=== PATIENT | female | born 1990 | race Caucasian/White ===

== ENCOUNTER 2023-01-07 12:07 | Emergency (ER) | payer BC, MEDICAID ==
[~2023-01-07] VITALS: Ht 165.1 cm; Wt 95.6 kg
[~2023-01-07 12:07] MED LIST: GUAI10SY2 PO; IBUP-1984 PO; [UNRECOGNIZED DRUG - CODE] PO
[2023-01-07 12:16] VITALS: BP 138/97
[2023-01-07 12:39] LABS: BASOPHILS % (AUTO) 0.4 % (0-1); EOSINOPHILS # (AUTO) 0.2 X10'3 (0-0.9); HEMATOCRIT 44.6 % (35.0-45.0); HEMOGLOBIN 15.1 g/dl (12.0-16.0); LYMPHOCYTES # (AUTO) 2.4 X10'3 (1.1-4.8); LYMPHOCYTES % (AUTO) 24.3 % (21-51); MEAN CORPUSCULAR HEMOGLOBIN 29.1 PG (27.0-31.0); MEAN CORPUSCULAR HGB CONC 33.9 g/dL (33.0-36.5); MEAN CORPUSCULAR VOLUME 85.9 FL (78-98); MEAN PLATELET VOLUME 6.9 FL (7.4-10.4); MONOCYTES # (AUTO) 0.9 X10'3 (0-0.9); NEUTROPHILS # (AUTO) 6.5 X10'3 (1.8-7.7); NEUTROPHILS % (AUTO) 64.3 % (42-75); PLATELET COUNT 340 X10'3 (140-440); RED BLOOD COUNT 5.19 X10'6 (4.20-5.60); RED CELL DISTRIBUTION WIDTH 12.9 % (11.5-14.5); WHITE BLOOD COUNT 10.1 X10'3 (4.5-11.0)
[2023-01-07 12:43] LABS: URINE HCG NEGATIVE (NEG)
[2023-01-07 12:50] LABS: CLARITY,URINE CLOUDY (Clear); COLOR,URINE AMBER (Yellow); GLUCOSE, URINE 100 mg/dl (Neg); KETONES,URINE TRACE mg/dl (Neg); LEUKOCYTE ESTERASE ,URINE SMALL (Neg); NITRITES, URINE NEGATIVE (Neg); OCCULT BLOOD,URINE NEGATIVE (Neg); PH,URINE 6.5 (4.8-8.0); PROTEIN,URINE 30 mg/dl (Neg)
[2023-01-07 12:51] LABS: UA COLLECTION TYPE CLN CATCH MIDSTREAM
[2023-01-07 12:57] LABS: ALANINE AMINOTRANSFERASE 22 U/L (12-78); ALBUMIN 4.1 G/DL (3.4-5.0); ALKALINE PHOSPHATASE 106 IU/L (46-116); ANION GAP 6 (8-16); ASPARTATE AMINO TRANSFERASE 14 U/L (10-37); BILIRUBIN,TOTAL 1.2 MG/DL (0.1-1.0); BLOOD UREA NITROGEN 9 MG/DL (7-18); BUN/CREATININE RATIO 9.6 (10.0-20.0); CALCIUM 9.3 MG/DL (8.5-10.1); CHLORIDE 100 MMOL/L (99-107); CREATININE 0.94 MG/DL (0.40-0.90); GLUCOSE 97 MG/DL (70-104); LIPASE 72 U/L (73-393); POTASSIUM 3.4 MMOL/L (3.5-5.1); SODIUM 138 MMOL/L (135-145); TOTAL CARBON DIOXIDE 32.1 MMOL/L (24-32); TOTAL PROTEIN 8.2 G/DL (6.4-8.2); eGFR 69 ML/MIN
[2023-01-07 12:59] LABS: BACTERIA,URINE 2+ /HPF (Neg); MUCUS STRANDS MODERATE /LPF (Neg); RBC,URINE NONE SEEN /HPF (0-2); SQUAMOUS EPITHELIAL CELL,UR MANY /LPF (FEW)
[2023-01-07 13:00] LABS: WBC,URINE 30-50 /HPF (0-4)
[2023-01-07] MEDS ORDERED: ondansetron/PF 4mg/2ml inj IV ONE (13:20)
[2023-01-07] MEDS ORDERED: normal saline 1000ml 1,000 ML IV ONE ×2 (13:20)
[2023-01-07] MEDS ORDERED: CefTRIAXone/D5W-Rocephin 1gm 50 ML IV ONE (13:20)
--- NOTE | 2023-01-07 13:21 | NUR ---
Per patient she just had her period 2 week ago.
[2023-01-07] MEDS ORDERED: famotidine/PF 10 mg/ml inj IV ONE (13:30)
[2023-01-07] MEDS ORDERED: AMOX-117 PO (13:51)
[2023-01-07] MEDS ORDERED: ONDA4TAB12 PO (13:51)
[2023-01-07] MEDS ORDERED: PANT-47 PO (14:18)
[2023-01-08] MEDS ORDERED: ONDA8TAB13 PO (14:38)
[2023-01-08] MEDS ORDERED: METO-292 PO (14:38)
== END 2023-01-07 15:32 | disposition home or self-care (01) ==
LOC: ER 12:08
DX: K52.9 Noninfective gastroenteritis and colitis, unspecified (principal); N10 Acute pyelonephritis; K21.9 Gastro-esophageal reflux disease without esophagitis; Z79.899 Other long term (current) drug therapy
CPT/HCPCS: 36415; 80053; 81001; 81025; 83690; 85025; 96365; 96375; 99284; J0696; J2405; J3490; J7030

== ENCOUNTER 2023-01-08 11:58 | Emergency (ER) | payer MEDICAID ==
[~2023-01-08] VITALS: Ht 165.1 cm; Wt 90.9 kg
[~2023-01-08 11:58] MED LIST changes: +AMOX-117 PO; +ONDA4TAB12 PO; +PANT-47 PO
[2023-01-08] MEDS ORDERED: normal saline 1000ML IV soln IVB ONE (12:45)
[2023-01-08] MEDS ORDERED: metoclopramide 5 mg/ml inj IV ONE (12:45)
[2023-01-08] MEDS ORDERED: ondansetron/PF 4mg/2ml inj IV ONE (12:54)
[2023-01-08] MEDS ORDERED: iohexol 300mg/ml 100ml inj. ONE (13:21)
[2023-01-08 13:30] LABS: BASOPHILS % (AUTO) 0.3 % (0-1); EOSINOPHILS # (AUTO) 0.2 X10'3 (0-0.9); EOSINOPHILS % (AUTO) 2.8 % (0-6); HEMATOCRIT 39.9 % (35.0-45.0); HEMOGLOBIN 13.6 g/dl (12.0-16.0); LYMPHOCYTES # (AUTO) 2.1 X10'3 (1.1-4.8); LYMPHOCYTES % (AUTO) 25.4 % (21-51); MEAN CORPUSCULAR HEMOGLOBIN 29.5 PG (27.0-31.0); MEAN CORPUSCULAR HGB CONC 34.1 g/dL (33.0-36.5); MEAN CORPUSCULAR VOLUME 86.5 FL (78-98); MEAN PLATELET VOLUME 7.2 FL (7.4-10.4); MONOCYTES # (AUTO) 0.9 X10'3 (0-0.9); MONOCYTES % (AUTO) 11.5 % (2-12); NEUTROPHILS # (AUTO) 4.9 X10'3 (1.8-7.7); PLATELET COUNT 259 X10'3 (140-440); RED BLOOD COUNT 4.61 X10'6 (4.20-5.60); RED CELL DISTRIBUTION WIDTH 12.6 % (11.5-14.5); WHITE BLOOD COUNT 8.2 X10'3 (4.5-11.0)
[2023-01-08 13:43] LABS: ALANINE AMINOTRANSFERASE 15 U/L (12-78); ALBUMIN 3.6 G/DL (3.4-5.0); ALKALINE PHOSPHATASE 88 IU/L (46-116); ANION GAP 7 (8-16); ASPARTATE AMINO TRANSFERASE 14 U/L (10-37); BILIRUBIN,TOTAL 0.7 MG/DL (0.1-1.0); BLOOD UREA NITROGEN 7 MG/DL (7-18); BUN/CREATININE RATIO 9.2 (10.0-20.0); CALCIUM 8.7 MG/DL (8.5-10.1); CHLORIDE 104 MMOL/L (99-107); CREATININE 0.76 MG/DL (0.40-0.90); GLUCOSE 82 MG/DL (70-104); LIPASE 68 U/L (73-393); POTASSIUM 3.6 MMOL/L (3.5-5.1); SODIUM 140 MMOL/L (135-145); TOTAL CARBON DIOXIDE 28.6 MMOL/L (24-32); TOTAL PROTEIN 7.2 G/DL (6.4-8.2); eGFR 88 ML/MIN
[2023-01-08 13:44] LABS: HCG SERUM QL NEGATIVE
[2023-01-08] MEDS ORDERED: ONDA8TAB13 PO (14:38)
[2023-01-08] MEDS ORDERED: METO-292 PO (14:38)
[2023-01-08 14:50] VITALS: BP 136/64
== END 2023-01-08 14:52 | disposition home or self-care (01) ==
LOC: ER 11:58
DX: R11.2 Nausea with vomiting, unspecified (principal); R19.7 Diarrhea, unspecified; M54.59 Other low back pain; K21.9 Gastro-esophageal reflux disease without esophagitis; Z79.899 Other long term (current) drug therapy
CPT/HCPCS: 36415; 74177; 80053; 83690; 84703; 85025; 96361; 96374; 96375; 99285; J2405; J2765; J3490; J7030; Q9967

== ENCOUNTER 2023-04-01 16:42 | Emergency (ER) | payer MEDICAID ==
[~2023-04-01] VITALS: Ht 167.6 cm; Wt 93.2 kg
[~2023-04-01 16:42] MED LIST changes: -AMOX-117 PO; +METO-292 PO; +ONDA8TAB13 PO
[2023-04-01 17:11] VITALS: BP 126/84
== END 2023-04-01 19:24 | disposition left against medical advice (07) ==
LOC: ER 16:43
DX: H57.11 Ocular pain, right eye (principal); Z53.21 Procedure and treatment not carried out due to patient leaving prior to being seen by health care provider
CPT/HCPCS: 99281

== ENCOUNTER 2024-07-25 15:23 | Outpatient (CLI) | payer MEDICAID ==
[~2024-07-25 15:23] MED LIST changes: +ONDA-243 PO; +ONDA-245 PO; -ONDA4TAB12 PO; -ONDA8TAB13 PO
== END 2024-07-25 23:59 | disposition home or self-care (01) ==
LOC: RAD 15:23
PROVIDERS: ATTEND Family Medicine
DX: M41.24 Other idiopathic scoliosis, thoracic region (principal)
CPT/HCPCS: 72082

== ENCOUNTER 2024-11-09 08:47 | Emergency (ER) | payer MEDICAID ==
[~2024-11-09] VITALS: Ht 165.1 cm; Wt 74.3 kg
[2024-11-09] MEDS: CefTRIAXone 2gm/D5W 50ml BAG 50 ML IV ONE (10:12)
[2024-11-09 10:18] LABS: BASOPHILS % (AUTO) 0.3 % (0-1); EOSINOPHILS # (AUTO) 0.1 X10'3 (0-0.9); EOSINOPHILS % (AUTO) 1.3 % (0-6); HEMATOCRIT 38.8 % (35.0-45.0); HEMOGLOBIN 13.2 g/dl (12.0-16.0); LYMPHOCYTES # (AUTO) 1.8 X10'3 (1.1-4.8); MEAN CORPUSCULAR HEMOGLOBIN 29.3 PG (27.0-31.0); MEAN CORPUSCULAR VOLUME 86.2 FL (78-98); MEAN PLATELET VOLUME 6.2 FL (7.4-10.4); MONOCYTES % (AUTO) 8.7 % (2-12); NEUTROPHILS # (AUTO) 8.1 X10'3 (1.8-7.7); NEUTROPHILS % (AUTO) 73.7 % (42-75); PLATELET COUNT 413 X10'3 (140-440); RED BLOOD COUNT 4.51 X10'6 (4.20-5.60); RED CELL DISTRIBUTION WIDTH 12.7 % (11.5-14.5)
[2024-11-09 10:34] LABS: ALANINE AMINOTRANSFERASE 85 U/L (12-78); ALBUMIN 3.1 G/DL (3.4-5.0); ALBUMIN/GLOBULIN RATIO 0.6 (1.1-1.5); ALKALINE PHOSPHATASE 168 IU/L (46-116); ANION GAP 6 (8-16); ASPARTATE AMINO TRANSFERASE 32 U/L (10-37); BILIRUBIN,TOTAL 0.4 MG/DL (0.1-1.0); BLOOD UREA NITROGEN 5 MG/DL (7-18); BUN/CREATININE RATIO 8.3 (10.0-20.0); CALCIUM 8.6 MG/DL (8.5-10.1); CHLORIDE 100 MMOL/L (99-107); GLUCOSE 85 MG/DL (70-104); POTASSIUM 3.6 MMOL/L (3.5-5.1); SODIUM 138 MMOL/L (135-145); TOTAL CARBON DIOXIDE 32.3 MMOL/L (24-32); eCRCL 119 ML/MIN; eGFR > 90 ML/MIN
[2024-11-09 11:03] LABS: HIV ANTIBODY 1&2 RAPID NON-REACTIVE (Neg)
[2024-11-09] MEDS ORDERED: AZIT250T83 PO (11:30)
[2024-11-09] MEDS ORDERED: ALBU8HFA INH (11:30)
[2024-11-09] MEDS ORDERED: PROM118S5 PO (11:30)
[2024-11-09 11:45] LABS: BILIRUBIN,URINE NEGATIVE (Neg); CLARITY,URINE CLEAR (Clear); COLOR,URINE YELLOW (Yellow); GLUCOSE, URINE NEGATIVE (Neg); KETONES,URINE NEGATIVE (Neg); LEUKOCYTE ESTERASE ,URINE NEGATIVE (Neg); NITRITES, URINE NEGATIVE (Neg); OCCULT BLOOD,URINE NEGATIVE (Neg); PH,URINE 7.5 (4.8-8.0); PROTEIN,URINE NEGATIVE (Neg); URINE HCG NEGATIVE (NEG)
[2024-11-09 11:48] LABS: UA COLLECTION TYPE CLN CATCH MIDSTREAM
[2024-11-09 11:57] VITALS: BP 111/75; PULSE 100; RESP 19; TEMP 97.6; O2SAT 98
== END 2024-11-09 11:58 | disposition home or self-care (01) ==
LOC: ER 08:47
DX: J18.9 Pneumonia, unspecified organism (principal); K21.9 Gastro-esophageal reflux disease without esophagitis; Z79.1 Long term (current) use of non-steroidal anti-inflammatories (NSAID); Z79.899 Other long term (current) drug therapy; Z20.822 Contact with and (suspected) exposure to COVID-19
CPT/HCPCS: 36415; 71045; 80053; 81003; 81025; 83605; 83735; 84145; 85025; 86703; 87040; 87502; 87503; 87811; 93005; 96365; 99285; J0696; J7030

== ENCOUNTER 2024-11-10 11:04 | Emergency (ER) | payer MEDICAID ==
[~2024-11-10] VITALS: Ht 165.1 cm; Wt 74.3 kg
[~2024-11-10 11:04] MED LIST changes: +ALBU8HFA INH; +AZIT250T83 PO; +PROM118S5 PO
[2024-11-10 11:15] VITALS: BP 113/78; TEMP 98.1
[2024-11-10 12:50] VITALS: PULSE 98; RESP 14; O2SAT 97
[2024-11-10] MEDS: ipratropium/albuterol 3ml nebule NEB ONE (12:50)
[2024-11-10 12:57] VITALS: PULSE 100; RESP 14; O2SAT 98
[2024-11-10] MEDS: dexamethasone sod phosphate 10mg/ml inj IM ONE (13:11)
== END 2024-11-10 13:14 | disposition left against medical advice (07) ==
LOC: ER 11:05
DX: J18.9 Pneumonia, unspecified organism (principal); K21.9 Gastro-esophageal reflux disease without esophagitis; Z79.2 Long term (current) use of antibiotics
CPT/HCPCS: 71045; 94640; 94760; 99283

== ENCOUNTER 2025-01-31 22:17 | Emergency (ER) | payer MEDICAID ==
[~2025-01-31] VITALS: Ht 167.6 cm; Wt 77.5 kg
[~2025-01-31 22:17] MED LIST changes: -ALBU8HFA INH; -AZIT250T83 PO; -PROM118S5 PO
[2025-01-31 22:19] VITALS: BP 131/92; PULSE 95; RESP 18; TEMP 98.3; O2SAT 100
[2025-02-01] MEDS ORDERED: GABA-530 PO (10:13)
== END 2025-02-01 00:19 | disposition left against medical advice (07) ==
LOC: ER 22:18
DX: M54.6 Pain in thoracic spine (principal); Z53.21 Procedure and treatment not carried out due to patient leaving prior to being seen by health care provider

== ENCOUNTER 2025-02-01 09:39 | Emergency (ER) | payer MEDICAID ==
[~2025-02-01] VITALS: Ht 167.6 cm; Wt 75.7 kg
[2025-02-01 09:43] VITALS: BP 136/88; PULSE 100; TEMP 98.6; O2SAT 100
[2025-02-01] MEDS ORDERED: GABA-530 PO (10:13)
--- NOTE | 2025-02-01 10:13 | Physician Documentation ---
History of Present Illness ~ Chief Complaint: Back Pain Stated Complaint: MULTIPLE MED COMPLAINTS Time Seen by MD: 10:07 Primary Medical Doctor: Dr Lea at [facility] 34 year old female reports burning, shooting back pain since a trigger point injection yesterday in clinic. She has scoliosis and received a midline trigger point injection. Since that time she has experienced burning, shooting pain radiating around the left side of her trunk to her left chest wall that is worse when laying down. Denies shortness of breath, N/V/D. Medication Reconciliation Allergies: Coded Allergies: No Known Allergies (Unverified , 02/01/25) Scheduled Amoxicillin Trihydrate (Amoxil), 500 MG PO 4 times a day Guaifenesin/Codeine Phos* (Robitussin Ac Syrup*), 10 ML PO bedtime Ibuprofen* (Motrin*), 800 MG PO TID Metoclopramide HCl (Reglan), 1 TAB PO Q6H Ondansetron 8mg ODT (Ondansetron Odt), 1 TAB PO Q6H Pantoprazole Sodium (PROTONIX tablet), 1 TAB PO DAILY Scheduled PRN ONDANSETRON ODT 4mg tablet (Ondansetron Odt), 1 TABLET PO Q6H PRN for nausea/vomiting Past Medical History Past Medical History: GERD Past Surgical History: noncontributory Alcohol Use: None Drug Use: none Lives with: Family Lives In: Home Occupation: employed Review of Systems All Other Systems at this time: Reviewed and Negative Physical Exam Physical Exam Vital Signs: RN Vital Signs have been reviewed: Yes, Temperature: 98.6, Source: Temporal, Heart Rate: 100, Respiratory Rate: 16, BP: 136/88, Pulse Oximetry: 100, Weight: 75.650 Physical Exam HEENT: PERRL, moist oral mucosa, EOMI Pulmonary: No respiratory distress CTAB Cardiac: RRR, no murmur, rub or gallop MSK: no deformity Skin: w/d/i, no rash Neuro: alert, nonfocal Psych: normal affect Progress Results/Orders Results/Orders Vital Signs 02/01/25 09:43 Temp 98.6 Pulse 100 Resp 16 B/P (MAP) 136/88 Pulse Ox 100 Medical Decision Making Findings 34 year old female with pain that appears consistent with nerve type pain or thoracic radiculopathy. Discussed options and recommended a pain clinic for possible ultrasound guided nerve root anesthesia. She will follow up with her orthopedics office. I have offered and will prescribe gabapentin for the nerve-type pain and return precautions have been discussed. Very low likelihood of PTX from this procedure and her exam is benign. Differential Diagnosis Ddx = nerve palsy, PTX, muscle spasm, chronic back pain, thoracic radiculopathy Departure Disposition: HOME / SELF CARE / HOMELESS Impression: Primary Impression: Radiculopathy Condition: Stable Discharge Instructions: Acute Back Pain, Adult Referrals: NO PRIMARY CARE PROVIDER (PCP) Prescriptions Gabapentin (Gabapentin) 100 Mg Capsule 1 CAP PO Q8H for 30 Days, #90 CAP 0 Refills Prov: ENZO BEASLEY MD 02/01/25 Education Educated: Patient Educated regarding: diagnosis, treatment, prognosis, need for follow up Signature Scribe Signature: . Attestation: . ENZO BEASLEY MD February 01, 2025 10:13
[2025-02-01 10:35] VITALS: RESP 16
[2025-02-01] MEDS: ketorolac trometh 30MG/ML vial 30 MG/ML VIAL IM ONE (10:35)
== END 2025-02-01 10:37 | disposition home or self-care (01) ==
LOC: ER 09:39
DX: M54.9 Dorsalgia, unspecified (principal); K21.9 Gastro-esophageal reflux disease without esophagitis
CPT/HCPCS: 96372; 99283; J1885